=== PATIENT | female | born 2000 | race Caucasian/White ===

== ENCOUNTER 2022-12-24 17:21 | Emergency (ER) | payer OTHER, SELFPAY ==
[2022-12-24 17:36] VITALS: BP 122/73; PULSE 81; RESP 16; TEMP 36.6; O2SAT 100
--- NOTE | 2022-12-24 17:43 | ED.EAR ---
HPI - Ear Problem General Chief complaint: Ear Stated complaint: Left Ear Irritation Time Seen by Provider: 12/24/22 17:43 Source: patient, RN notes reviewed and old records reviewed Mode of arrival: ambulatory Limitations: no limitations History of Present Illness HPI Narrative: 22 year old female who presents to [facility] with complaints of left ear pain which has been bothering her for the past 2 days consistently painful. She reports that she did have an ear infection about 2-3 months ago that she thought had resolved with prior treatment. Patient denies any known fevers, chills or sweat or any body aches. Patient has been taking Ibuprofen for her symptoms MD Complaint: ear pain Location: left ear Duration: constant Severity: moderate Discharge from ear: Reports no Associated symptoms ear: other (ear pain) Treatment prior to arrival: oral analgesic Related Data Home Medications Medication Instructions Recorded Confirmed escitalopram oxalate 10 mg tablet mg 12/24/22 hydroxyzine HCl 25 mg tablet mg 12/24/22 venlafaxine 75 mg capsule,extended mg PO 12/24/22 release 24 hr [id number]-glvhhrqyf 3.5 drp 12/26/22 mg-10,000 unit/mL-1 % ear drops,susp Allergies Allergy/AdvReac Type Severity Reaction Status Date / Time No Known Allergies Allergy Verified 12/24/22 17:51 Review of Systems Review of Systems: CONSTITUTIONAL: Denies malaise, chills, sweats, or fever. EYES: Denies visual changes, redness, or discharge. ENT: Reports rhinorrhea, congestion, sinus pain,left otalgia, no sore throat. CARDIOVASCULAR: Denies chest pain, palpitations, or edema. RESPIRATORY: Reports no cough.? Denies dyspnea. GASTROINTESTINAL: Denies abdominal pain, nausea, vomiting, diarrhea SKIN: Denies rash or itching. MUSCULOSKELETAL: Denies myalgia. NEUROLOGIC: Denies headache. All systems reviewed & are unremarkable except as noted in HPI and below PMFSH Past Medical History Medical History (Updated 12/26/22 @ 17:01 by Felicity Ricks NP) Anxiety and depression Ear infection Social History Social History (Updated 12/26/22 @ 17:01 by Felicity Ricks NP) Smoking status: Never smoker Alcohol intake: current Alcohol use details: rare social Substance use type: does not use Gender identity (if verbalized by the patient): Female Comments At time of signature, agree with nursing past medical, surgical, social and family history. There is no relevant family history pertinent to the presenting complaint Exam Narrative: GENERAL: Well-appearing, well-nourished, and in no acute distress. HEAD: Normocephalic EYES: PERRLA, conjunctivae clear ENT: Nares clear, turbinates edematous and erythematous, clear discharge. Mucous membranes moist.Left TM red, right TM normal pearly shanks with dull light reflex bilaterally; no tragal tenderness. Oropharynx erythematous without lesions. Tonsils not enlarged and without exudate, no drooling, no hoarseness, no trismus, uvula midline. NECK: Supple. No lymphadenopathy CHEST: Clear to auscultation, breath sounds equal. No wheezing, rhonchi, rales, or stridor. No respiratory distress, speaks in full sentences.SAO2 100% on room air HEART: Regular rate and rhythm. No murmur heard. SKIN: Warm, dry, no rash. NEURO: Alert and oriented x3. PSYCH: Normal mood and affect Course Course Emergency Course: Patient is aware of diagnosis, understands and agrees to treatment plan.? Anticipatory guidance given.? Patient agrees to follow-up as directed and is aware of reasons to seek care at the emergency department. Portions of this record may have been created with voice recognition software Level of Care: Express Care Visit Vital Signs Vital signs: Vital Signs Temperature 36.6 C 12/24/22 17:36 Pulse Rate 81 12/24/22 17:36 Respiratory Rate 16 12/24/22 17:36 Blood Pressure 122/73 12/24/22 17:36 Pulse Oximetry 100 09/0
== END 2022-12-24 18:10 | disposition home or self-care (01) ==
PROVIDERS: Emergency Provider Registered Nurse; PCP Physician Assistant
DX: H65.02 Acute serous otitis media, left ear (principal)
CPT/HCPCS: 99213; G0463

== ENCOUNTER 2023-07-27 14:44 | Emergency (ER) | payer OTHER, SELFPAY ==
[2023-07-27 14:58] VITALS: BP 131/74; PULSE 93; RESP 18; TEMP 36.5; O2SAT 100
--- NOTE | 2023-07-27 15:02 | ED.URI ---
HPI - URI/Sore Throat General Chief Complaint: Upper Respiratory Infection Stated Complaint: Sinus Time Seen by Provider: 07/27/23 15:02 Source: patient, RN notes reviewed and old records reviewed Mode of arrival: ambulatory Limitations: no limitations History of Present Illness HPI Narrative: 23-year-old female presents to the [facility] with sinus congestion, sore throat, reported fever that started Monday, 5 days. No treatment prior to arrival Related Data Home Medications Medication Instructions Recorded Confirmed escitalopram oxalate 10 mg tablet 10 mg DIRECTED 12/24/22 07/27/23 hydroxyzine HCl 25 mg tablet 25 mg DIRECTED 12/24/22 07/27/23 venlafaxine 75 mg capsule,extended 75 mg PO DIRECTED 12/24/22 07/27/23 release 24 hr Allergies Allergy/AdvReac Type Severity Reaction Status Date / Time No Known Allergies Allergy Verified 12/24/22 17:51 Review of Systems Review of Systems: All systems reviewed & are unremarkable except as noted in HPI and below Constitutional: Constitutional: Reports no additional constitutional complaints Eyes: Eyes: Reports no additional eye complaints ENT: Reports as per HPI Cardiovascular: Cardiovascular: Reports no additional cardiovascular complaints, Denies chest pain and Denies dyspnea Respiratory: Respiratory: Reports no additional respiratory complaints, Denies chest congestion, Denies cough and Denies dyspnea Gastrointestinal: Gastrointestinal: Reports no additional gastrointestinal complaints, Denies abdominal pain, Denies nausea and Denies vomiting Musculoskeletal: Musculoskeletal: Reports no additional musculoskeletal complaints Integumentary/Breasts: Skin/Breast: Reports system reviewed and no additional complaints, except as docu Neurologic: Reports system reviewed and no additional complaints, except as documented Psychiatric: Psychiatric: Reports no additional psychiatric complaints Allergic/Immunologic: Allergic/Immunologic: Reports no additional allergic/immunologic complaints [facility] Past Medical History Medical History Anxiety and depression Ear infection Social History Social History Smoking status: Never smoker Alcohol intake: current Alcohol use details: rare social Substance use type: does not use Gender identity (if verbalized by the patient): Female Comments At the time of my signature, I reviewed and agree with the nursing past medical, surgical, social, and family history. There is no relevant family history pertinent to the patient complaint. Exam Const: General: cooperative, healthy appearing, comfortable, no acute distress, well developed, alert and well nourished Nutritional Appearance: well nourished Orientation/consciousness: patient oriented x3 Limitations: no limitations HENMT: Head: normal to inspection Ears: hearing grossly normal bilaterally, external ears normal, TM's normal bilaterally, EAC's normal, mastoids normal and no periauricular adenopathy Face/Nose/Sinus: Normal external nose present, Normal nares present, Normal nasal mucous membranes and turbinates present, normal facial exam and face symmetric Face and sinus: normal facial exam and face symmetric Mouth: Yes Normal oral and palatal mucosa present, Yes lip normal and Yes moist mucous membranes Throat: posterior oropharynx normal, uvula midline, postnasal drainage and no uvular edema Eyes: General: appearance normal, both eyes and all related structures Alignment and Position: alignment normal Periorbital: periorbital findings normal Pupils: Equal, round and reactive pupils present EOM: EOMs intact bilaterally Neck: Neck: normal visual inspection, full ROM, no lymphadenopathy and no meningeal signs Chest: Chest palpation & inspection: normal inspection of the chest Resp: Effort & Inspection: normal respiratory effort and able to speak
== END 2023-07-27 15:25 | disposition home or self-care (01) ==
PROVIDERS: Emergency Provider Nurse Practitioner; PCP Physician Assistant
DX: J06.9 Acute upper respiratory infection, unspecified (principal); H65.03 Acute serous otitis media, bilateral; F41.9 Anxiety disorder, unspecified; F32.A Depression, unspecified
CPT/HCPCS: 87081; 87880; 99213; G0463

== ENCOUNTER 2023-10-28 17:32 | Emergency (ER) | payer OTHER, SELFPAY ==
[2023-10-28 17:55] VITALS: BP 138/79; PULSE 99; RESP 16; TEMP 36.3; O2SAT 100
--- NOTE | 2023-10-28 18:40 | ED.URI ---
HPI - URI/Sore Throat General Chief Complaint: Upper Respiratory Infection Stated Complaint: hard time swallowing Time Seen by Provider: 10/28/23 18:40 Source: patient Mode of arrival: ambulatory Limitations: no limitations History of Present Illness HPI Narrative: 23-year-old female presents with complaint of nasal congestion, postnasal drainage, sore throat, sinus pressure for 1 week. Reports sore throat and drainage course today. Not taking any [id number] medications to treat her symptoms. Afebrile. All systems reviewed and negative except as noted above. Related Data Home Medications Medication Instructions Recorded Confirmed escitalopram oxalate 10 mg tablet 10 mg DIRECTED 12/24/22 10/28/23 hydroxyzine HCl 25 mg tablet 25 mg DIRECTED 12/24/22 10/28/23 venlafaxine 75 mg capsule,extended 75 mg PO DIRECTED 12/24/22 10/28/23 release 24 hr Allergies Allergy/AdvReac Type Severity Reaction Status Date / Time No Known Allergies Allergy Verified 10/28/23 18:13 Review of Systems Review of Systems: CONSTITUTIONAL: Denies fever, chills, or sweats. reports fatigue. EYES: Denies visual changes, redness, or discharge. ENT: Reports rhinorrhea, congestion, sore throat. Denies otalgia. CARDIOVASCULAR: Denies chest pain, palpitations, or edema. RESPIRATORY: Denies cough or dyspnea. GASTROINTESTINAL: Denies abdominal pain, nausea, vomiting, or diarrhea. GENITOURINARY: Denies dysuria or hematuria. SKIN: Denies rash or itching. MUSCULOSKELETAL: Denies back pain, joint pain, or myalgia. NEUROLOGIC: Denies headache, numbness, or weakness. PSYCHIATRIC: Denies anxiety or depression. All other systems reviewed are negative, except as documented in HPI. [facility] Past Medical History Medical History Anxiety and depression Ear infection Social History Social History Smoking status: Never smoker Alcohol intake: current Alcohol use details: rare social Substance use type: does not use Gender identity (if verbalized by the patient): Female Comments At time of signature, agree with nursing past medical, surgical, social and family history. There is no relevant family history pertinent to the presenting complaint. Exam Narrative: GENERAL: This is a well-nourished, well-developed patient, in no apparent distress. HEAD: normocephalic, atraumatic. EYES: PERRL. Sclera clear/white. Vision is grossly intact. EARS: External ears normal, auditory canals clear and without drainage, TMs normal without perforation. Hearing grossly intact. NOSE: External nose normal with nasal congestion, erythema swelling normal general nares clear nasal drainage THROAT: Mucous membranes moist, Erythema and swelling to posterior pharynx with clear postnasal drainage NECK: Neck supple, non-tender without lymphadenopathy, masses or thyromegaly. CARDIOVASCULAR: Regular rate and rhythm without murmurs, gallops, or rubs. RESPIRATORY: Clear to auscultation. Breath sounds equal bilaterally. No wheezes, rales, or rhonchi. SKIN: warm, Dry, intact with no suspicious lesions or rash, good texture and turgor. NEURO: awake, alert, and oriented to person, place and time. There were no obvious focal neurologic abnormalities. EXTREMITIES: No joint tenderness, effusion, or edema noted. Course Course Level of Care: Express Care Visit Vital Signs Vital signs: Vital Signs Temperature 36.3 C L 10/28/23 17:55 Pulse Rate 99 10/28/23 17:55 Respiratory Rate 16 10/28/23 17:55 Blood Pressure 138/79 10/28/23 17:55 Pulse Oximetry 100 10/28/23 17:55 Oxygen Delivery Room Air 10/28/23 17:55 Temperature 36.3 C L 10/28/23 17:55 Pulse Rate 99 10/28/23 17:55 Respiratory Rate 16 10/28/23 17:55 Blood Pressure 138/79 10/28/23 17:55 Pulse Oximetry 100 10/28/23 17:55 Oxygen Delivery Room Air
[2023-10-28 19:03] LABS: EDINFLUASCREEN Negative; EDINFLUBSCREEN Negative
== END 2023-10-28 19:16 | disposition home or self-care (01) ==
PROVIDERS: Emergency Provider Nurse Practitioner Family
DX: J01.90 Acute sinusitis, unspecified (principal); Z20.822 Contact with and (suspected) exposure to COVID-19; F41.9 Anxiety disorder, unspecified; F32.A Depression, unspecified
CPT/HCPCS: 87081; 87426; 87804; 99213; G0463

== ENCOUNTER 2024-04-11 09:17 | Emergency (ER) | payer OTHER, SELFPAY ==
[2024-04-11 09:43] VITALS: BP 151/89; PULSE 97; RESP 16; TEMP 36.4; O2SAT 99
--- NOTE | 2024-04-11 10:11 | ED_ITS ---
HPI - General Adult General Chief complaint: Nausea/Vomiting/Diarrhea Stated complaint: throwing up,constipation/diarrhea Time Seen by Provider: 04/11/24 10:12 Source: patient, RN notes reviewed and old records reviewed Mode of arrival: ambulatory Limitations: no limitations History of Present Illness HPI narrative: 23-year-old female presents to the [facility] with complaints nausea vomiting diarrhea since Monday, 5 days. States yesterday she started eating normally again, woke up this morning and vomited but was able to keep fluids down as well. Denies any pain. Denies fevers. Related Data Home Medications ?Medication ?Instructions ?Recorded ?Confirmed ?Last Taken ?Type escitalopram oxalate 10 mg tablet 10 mg PO DIRECTED 12/24/22 04/11/24 Unknown History hydroxyzine HCl 25 mg tablet 25 mg PO DIRECTED 12/24/22 04/11/24 Unknown History venlafaxine 75 mg capsule,extended 75 mg PO DIRECTED 12/24/22 04/11/24 Unknown History release 24 hr drospirenone 3 mg-ethinyl 1 tablet PO DAILY 04/11/24 04/11/24 Unknown History estradiol 0.02 mg tablet Allergies Allergy/AdvReac Type Severity Reaction Status Date / Time No Known Allergies Allergy Verified 04/11/24 10:18 Review of Systems Review of Systems: All systems reviewed & are unremarkable except as noted in HPI and below Constitutional: Constitutional: Reports no additional constitutional compl aints ENT: Reports system reviewed and no additional complaints, except as documented Cardiovascular: Cardiovascular: Reports no additional cardiovascular complaints, Denies chest pain and Denies dyspnea Respiratory: Respiratory: Reports no additional respiratory complaints, Denies chest congestion, Denies cough and Denies dyspnea Gastrointestinal: Gastrointestinal: Reports as per HPI Genitourinary: Genitourinary: Reports no additional female genitourinary complaints Musculoskeletal: Musculoskeletal: Reports no additional musculoskeletal complaints Integumentary/Breasts: Skin/Breast: Reports system reviewed and no additional complaints, except as docu PMFSH Past Medical History Medical History Anxiety and depression Ear infection Social History Social History Smoking status: Never smoker Alcohol intake: current Alcohol use details: rare social Substance use type: does not use Gender identity (if verbalized by the patient): Female Comments At the time of my signature, I reviewed and agree with the nursing past medical, surgical, social, and family history. There is no relevant family history pertinent to the patient complaint. Exam Const: General: cooperative, healthy appearing, comfortable, no acute distress, well developed, alert and well nourished Nutritional Appearance: well nourished and obese Orientation/consciousness: patient oriented x3 Limitations: no limitations HENMT: Head: normal to inspection Ears: hearing grossly normal bilaterally, external ears normal, TM's normal bilaterally, EAC's normal, mastoids normal and no periauricular adenopathy Face/Nose/Sinus: normal facial exam and face symmetric Face and sinus: normal facial exam and face symmetric Mouth: Yes Normal oral and palatal mucosa present, Yes lip normal, Yes tongue normal and Yes moist mucous membranes Throat: posterior oropharynx normal, tonsils normal, uvula midline and no uvular edema Eyes: General: appearance normal, both eyes and all related structures Neck: Neck: normal visual inspection, full ROM, no lymphadenopathy and no meningeal signs Chest: Chest palpation & inspection: normal inspection of the chest Resp: Effort & Inspection: normal respiratory effort and able to speak in complete sentences Auscultation: clear to auscultation bilaterally, no crackles, no rales, no rhonchi and no wheezes Cardio: Rate: regular rate GI: GI Palp: No abdominal tenderness and Yes Soft to palpation Auscultation: normal bowel sounds Skin: General skin exam: normal color and no rashes or lesions noted Neuro: General: patient oriented x3, gait normal, moves all extremities and no meningeal signs Cognition (Neuro): normal cognition Speech: normal speech Gait exam (Neuro): Normal gait present Extrem: General: normal to inspection, full ROM, capillary refill normal and normal gait Psych: Appearance: grossly normal and well kempt Mental Status: mental status grossly normal Speech and movement: Normal speech and movement present and Clear speech present Affect: normal affect Attitude: cooperative Course Course Level of Care: Express Care Visit Vital Signs Vital signs: Vital Signs Temperature 97.6 F 04/11/24 09:43 Pulse Rate 97 04/11/24 09:43 Respiratory Rate 16 04/11/24 09:43 Blood Pressure 151/89 H 04/11/24 09:43 Pulse Oximetry 99 04/11/24 09:43 Oxygen Delivery Room Air 04/11/24 09:43 Temperature 97.6 F 04/11/24 09:43 Pulse Rate 97 04/11/24 09:43 Respiratory Rate 16 04/11/24 09:43 Blood Pressure 151/89 H 04/11/24 09:43 Pulse Oximetry 99 04/11/24 09:43 Oxygen Delivery Room Air 04/11/24 09:43 Reviewed Medical Decision Making MDM Narrative Medical decision making narrative: Patient sitting comfortably in exam room. Nontoxic, vitals stable. Patient in no acute distress Patient presents for GI symptoms. No acute findings noted on exam Patient with probable viral gastritis, will treat but discussed signs and symptoms to follow-up with the primary as well as signs and symptoms go the emergency room which she verbalized understanding. Patient is tolerating liquids in the [facility] Discharge instructions reviewed with patient, as well as provided in writing per nursing staff. The instructions also include specific and strict return/GO TO THE ER as well as f/u information. All questions have been answered, and the patient deny any further questions with discharge and discharge plan. Some parts of this dictation were generated by voice recognition software and may contain typographical and/or grammatical inaccuracies. Differential Diagnosis Differential Diagnosis: Gastroenteritis, nausea, vomiting Medical Records Medical records reviewed: Yes I reviewed the external patient's medical records. Vital Signs Vital Signs: Vital Signs Temperature 97.6 F 04/11/24 09:43 Pulse Rate 97 04/11/24 09:43 Respiratory Rate 16 04/11/24 09:43 Blood Pressure 151/89 H 04/11/24 09:43 Pulse Oximetry 99 04/11/24 09:43 Oxygen Delivery Room Air 04/11/24 09:43 Temperature 97.6 F 04/11/24 09:43 Pulse Rate 97 04/11/24 09:43 Respiratory Rate 16 04/11/24 09:43 Blood Pressure 151/89 H 04/11/24 09:43 Pulse Oximetry 99 04/11/24 09:43 Oxygen Delivery Room Air 04/11/24 09:43 Reviewed Lab Data Lab results reviewed: Yes I reviewed the patient's lab results. Labs: Reviewed Critical Care Time Critical Care Time Critical Care Time: No Discharge Plan Discharge Clinical Impression: Gastroenteritis Patient Disposition: Home, Self-Care Condition: Stable Instructions: Diet for Stomach Ulcers and Gastritis (ED), Acute Nausea and Vomiting (DC) Additional Instructions: Keep your diet very simple. Nothing fried, greasy, spicy or highly processed for 72 hours. For the 1st 24 hours be sure to drink plenty of fluids, water, Gatorade, Pedialyte, ice pops in Jell-O. After 24 hours you can start eating very simple foods such as bananas, rice, applesauce and toast. Take Zofran as needed for nausea Follow-up with your primary care. Today your blood pressure was 151/89. For worsening symptoms or if you develop pain please go directly to the emergency room Patient Language: Greenlandic Prescriptions: New ondansetron 4 mg tablet,disintegrating 4 mg PO Q8H PRN (Reason: nausea and vomiting) Qty: 5 0RF No Action venlafaxine 75 mg capsule,extended release 24hr 75 mg PO DIRECTED hydroxyzine HCl 25 mg tablet 25 mg PO DIRECTED escitalopram oxalate 10 mg tablet 10 mg PO DIRECTED cetirizine 10 mg capsule 10 mg PO DAILY Qty: 30 0RF drospirenone-ethinyl estradiol 3-0.02 mg tablet 1 tablet PO DAILY Follow-up/Referrals: Lina,DERRELL Ornelas [Primary Care Provider] - 1 Week (express care follow up ) Stand Alone Forms: Work/School Release IP Time of Disposition: 10:47
== END 2024-04-11 11:08 | disposition home or self-care (01) ==
PROVIDERS: Emergency Provider Nurse Practitioner; PCP Physician Assistant
DX: K52.9 Noninfective gastroenteritis and colitis, unspecified (principal); Z79.899 Other long term (current) drug therapy
CPT/HCPCS: 99213; G0463